=== PATIENT | female | born 1970 | race Caucasian/White ===

== ENCOUNTER → 2016-12-29 | Outpatient (CLI) | payer OTHER | LOC: LAB 07:44 | PROVIDERS: ATTEND Family Medicine | DX: E03.9 Hypothyroidism, unspecified (principal) | CPT/HCPCS: 36415; 84443 ==

== ENCOUNTER → 2017-04-13 | Outpatient (CLI) | payer OTHER ==
--- NOTE | 2017-04-13 22:38 | DI ---
XR RIBS W/PA CXR MIN 3VW,04/13/2017 10:28 AM: Clinical History: Left-sided rib pain. Previous Exam: None at this facility. Findings: Multiple views of the left ribs are obtained, and demonstrate anatomic alignment without fractures. T he lungs are clear. Cardiomediastinum and bony thorax are unremarkable. Impression: No rib fracture identified.
== END ==
LOC: MOB LAB 10:37
PROVIDERS: ATTEND Family Medicine
DX: R07.81 Pleurodynia (principal)
CPT/HCPCS: 71101